=== PATIENT | male | born 1955 | race Caucasian/White ===

== ENCOUNTER 2017-04-10 22:16 | Observation (INO) | payer BC, OTHER ==
[~2017-04-10] VITALS: Ht 182.9 cm; Wt 89.3 kg
[2017-04-10] MEDS ORDERED: NITROGLYCERIN OINT 2% 1GM PACKET EXT ONE (23:00)
[2017-04-10] MEDS ORDERED: SODIUM CHLORIDE 0.9% 1000ML 1,000 ML IV ONE (23:00)
[2017-04-10 23:07] LABS: BASO % 0.3 %; BASO ABS # 0.02 K/uL (0-0.2); EOS % 1.9 %; EOS ABS # 0.14 K/uL (0-0.5); HEMATOCRIT 43.9 % (42-52); HEMOGLOBIN 15.7 g/dL (14.0-18.0); IG# 0.02 K/uL (0.00-0.02); LYMPH % 30.9 %; LYMPH ABS # 2.29 K/uL (1.2-3.4); MEAN CELL VOLUME 87.5 fL (80-100); MEAN CORPUSCULAR HEMOGLOBIN 31.3 pg (25-34); MEAN CORPUSCULAR HGB CONC 35.8 g/dl (32-36); MEAN PLATELET VOLUME 10.5 fL (7.4-10.4); MONO % 9.3 %; MONO ABS # 0.69 K/uL (0.11-0.59); NEUT % 57.3 %; NEUT ABS # 4.26 K/uL (1.4-6.5); PLATELET COUNT 218 K/uL (130-400); RED CELL DISTRIBUTION WIDTH CV 12.8 % (11.5-14.5); RED CELL DISTRIBUTION WIDTH SD 40.8 fL (36.4-46.3); WHITE BLOOD COUNT 7.42 K/uL (4.8-10.8)
[2017-04-10] MEDS ORDERED: LISI20TA3 PO (23:17)
[2017-04-10] MEDS ORDERED: BUPR-79 PO (23:17)
[2017-04-10] MEDS ORDERED: ROSU20TA PO (23:17)
[2017-04-10] MEDS ORDERED: ASPI81TA28 PO (23:17)
[2017-04-10 23:32] LABS: CALCIUM 8.8 mg/dl (8.5-10.1); POTASSIUM 3.9 mmol/L (3.5-5.1); TOTAL PROTEIN 7.6 gm/dl (6.4-8.2)
--- NOTE | 2017-04-11 01:37 | History and Physical ---
History & Physical Date & Time of Service: Apr 11, 2017 at 01:36 Chief Complaint: Chest Pain Primary Care Physician: Gertrudis Sahu History of Present Illness Source: patient 61 y/o M Hx HTN, HPL, anxiety. Pt was shoveling snow and developed central CP. Was slightly SOB, denies N/V, lightheadedness or diaphoresis. The pain persisted on arrival to the ER where he responded to NTG. Initial trop and EKG do not support acute ischemia. The pt has a strong family history of CAD. 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 Quit smoking 30 years ago Rarely drinks Smoking Status: Former Smoker Multi-Drug Resistant Organisms History of MDRO: No Allergies Coded Allergies: Penicillins (Verified Allergy, Unknown, unknown, 04/10/17) Home Medications Scheduled Aspirin (Aspirin Ec), 81 MG PO DAILY Bupropion (Wellbutrin Sr), 150 MG PO BID Lisinopril (Prinivil), 20 MG PO DAILY Rosuvastatin Calcium (Crestor), 20 MG PO DAILY Review of Systems Constitutional: No fever, No chills, No sweats Eyes: No worsening of vision ENT: No hearing loss, No unusual epistaxis, No nasal symptoms Respiratory: + shortness of breath, No cough, No sputum, No wheezing Cardiovascular: + chest pain, No orthopnea, No PND Abdomen: No pain, No nausea, No vomiting Musculoskeletal: No joint pain Genitourinary - Male: No hematuria, No dysuria Neurologic: No memory loss, No paralysis, No weakness Psychiatric: No depression symptoms Endocrine: No fatigue Hematologic / Lymphatic: No abnormal bleeding/bruising Integumentary: No rash Allergic / Immunologic: No environmental allergies Physical Exam Vital Signs Date Time Temp Pulse Resp B/P (MAP) Pulse Ox O2 Delivery O2 Flow Rate FiO2 04/10/17 23:46 58 16 129/75 97 04/10/17 23:30 117/72 04/10/17 23:16 60 14 120/72 98 04/10/17 23:13 60 18 124/73 97 Room Air 04/10/17 23:09 124/73 04/10/17 23:01 98 Room Air 04/10/17 22:46 60 19 97 04/10/17 22:31 56 04/10/17 22:25 97 Room Air 04/10/17 22:25 36.5 59 19 160/121 97 Room Air General Appearance: WD/WN, no apparent distress Head: normocephalic Eyes: normal inspection ENT: normal ENT inspection, pharynx normal Neck: supple, no JVD Respiratory/Chest: chest non-tender, lungs clear, normal breath sounds Cardiovascular: regular rate, rhythm, no edema, no gallop Abdomen/GI: normal bowel sounds, non tender, soft Back: normal inspection, no CVA tenderness Extremities/Musculoskelatal: normal inspection, no calf tenderness, normal capillary refill, no pedal edema, normal range of motion 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, no motor/sensory deficits, alert, oriented x 3 Skin: normal color Diagnostics Laboratory Results Results Past 24 Hours Test 04/10/17 21:18 04/10/17 22:20 04/10/17 22:33 04/11/17 00:11 Range/Units White Blood Count 7.42 4.8-10.8 K/uL Red Blood Count 5.02 4.7-6.1 M/uL Hemoglobin 15.7 14.0-18.0 g/dL Hematocrit 43.9 42-52 % Mean Corpuscular Volume 87.5 80-100 fL Mean Corpuscular Hemoglobin 31.3 25-34 pg Mean Corpuscular Hemoglobin Concent 35.8 32-36 g/dl Platelet Count 218 130-400 K/uL Mean Platelet Volume 10.5 7.4-10.4 fL Neutrophils (%) (Auto) 57.3 % Lymphocytes (%) (Auto) 30.9 % Monocytes (%) (Auto) 9.3 % Eosinophils (%) (Auto) 1.9 % Basophils (%) (Auto) 0.3 % Neutrophils # (Auto) 4.26 1.4-6.5 K/uL Lymphocytes # (Auto) 2.29 1.2-3.4 K/uL Monocytes # (Auto) 0.69 0.11-0.59 K/uL Eosinophils # (Auto) 0.14 0-0.5 K/uL Basophils # (Auto) 0.02 0-0.2 K/uL RDW Standard Deviation 40.8 36.4-46.3 fL RDW Coefficient of Variation 12.8 11.5-14.5 % Immature Granulocyte % (Auto) 0.3 % Immature Granulocyte # (Auto) 0.02 0.00-0.02 K/uL D-Dimer 310 0-500 ug/L FEU Sodium Level 139 136-145 mmol/L Potassium Level 3.9 3.5-5.1 mmol/L Chloride Level 106 98-107 mmol/L Carbon Dioxide Level 23 21-32 mmol/L Anion Gap 10.0 3-11 mmol/L Blood Urea Nitrogen 16 7-18 mg/dl Creatinine 1.00 0.60-1.40 mg/dl Est Creatinine Clear Calc Drug Dose 84.7 ml/min Estimated GFR () 95.1 Estimated GFR (Non- 82.0 BUN/Creatinine Ratio 15.9 10-20 Random Glucose 100 70-99 mg/dl Calcium Level 8.8 8.5-10.1 mg/dl Total Bilirubin 0.4 0.2-1 mg/dl Aspartate Amino Transf (AST/SGOT) 22 15-37 U/L Alanine Aminotransferase (ALT/SGPT) 47 12-78 U/L Alkaline Phosphatase 125 45-117 U/L Total Protein 7.6 6.4-8.2 gm/dl Albumin 4.0 3.4-5.0 gm/dl Globulin 3.6 2.5-4.0 gm/dl Albumin/Globulin Ratio 1.1 0.9-2 Lipase 194 73-393 U/L Thyroid Stimulating Hormone (TSH) 2.390 0.300-4.500 uIu/ml Chemistry Specimen Hemolysis Urine Color YELLOW Urine Appearance CLEAR CLEAR Urine pH 7.5 4.5-7.5 Urine Specific [place] 1.014 1.000-1.030 Urine Protein NEG NEG Urine Glucose (UA) NEG NEG Urine Ketones NEG NEG Urine Occult Blood NEG NEG Urine Nitrite NEG NEG Urine Bilirubin NEG NEG Urine Urobilinogen NEG NEG Urine Leukocyte Esterase NEG NEG Bedside Troponin I < 0.030 < 0.030 0-0.045 ng/ml EKG NSR, LVH Impression Assessment and Plan 61 y/o M Hx HTN, HPL, anxiety. Pt was shoveling snow and developed central CP. Was slightly SOB, denies N/V, lightheadedness or diaphoresis. The pain persisted on arrival to the ER where he responded to NTG. Initial trop and EKG do not support acute ischemia. The pt has a strong family history of CAD. 1) CP - pt is high risk and will be assigned to telemetry - will cont Statin, ASA and NTG PRN - he last had a stress test in his 50s and will likely benefit from an additional. His HR would not tolerate a B nora 2) HTN - cont Lisinopril 3) HPL - cont Crestor 4) Anxiety - cont Wellbutrin Full code - Lovenox prophylaxis Total time for this admit including review of labs, meds, imaging, records, EKG - discussion with pt and ER attending 30 min Level of Care Telemetry Resuscitation Status FULL RESUSCITATION VTE Prophylaxis VTE Risk Assessment Done? Y/N: Yes Risk Level: Low Given or contraindicated: Enoxaparin (Lovenox)SQ
[2017-04-11] MEDS ORDERED: MAGNESIUM HYDROXIDE SUSP 30 ML UDC PO PRN (01:45)
[2017-04-11] MEDS ORDERED: POLYETHYLENE (MIRALAX) 17 GM PACK PO PRN (01:45)
[2017-04-11] MEDS ORDERED: ONDANSETRON INJ 2 MG/ML 2 ML VIAL IV PRN (01:45)
[2017-04-11] MEDS ORDERED: ACETAMINOPHEN 325 MG TAB PO PRN (01:45)
[2017-04-11] MEDS ORDERED: NITROGLYCERIN 0.4 MG SL PER TAB CHARGE SL PRN (01:45)
[2017-04-11] MEDS ORDERED: ALUMINUM/MAGNESIUM/SIMETH (MAALOX MAX) 30 ML UDC PO PRN (01:45)
[2017-04-11] MEDS ORDERED: ZOLPIDEM TARTRATE 5 MG TAB PO PRN (01:45)
[2017-04-11] MEDS ORDERED: MoRPHine SULFATE 2 MG/ML CARP IV PRN (01:45)
[2017-04-11 01:58] VITALS: BP 138/82; PULSE 52; TEMP 36.4; O2SAT 97; Ht 182.9 cm; Wt 89.3 kg
[2017-04-11 04:00] VITALS: BP 121/57; PULSE 54; TEMP 36.6; O2SAT 97
[2017-04-11] MEDS ORDERED: IV FLUIDS COMPLETED PRN (06:15)
--- NOTE | 2017-04-11 06:22 | EMERGENCY ROOM VISIT NOTE ---
History First contact with patient: 22:28 Chief Complaint: CHEST PAIN Stated Complaint: CHEST PAIN Nursing Triage Summary: Retrosternal CP now relieved. History of Present Illness The patient is a 61 year old male who presents to the Emergency Room with complaints of left-sided chest pain symptoms that began about 1-2 hours ago. The patient states that he was showing snow tonight, and shortly thereafter began with some symptoms. He is concerned about his symptoms as he has a very strong family history of cardiac disease. He states that his father and his brothers all had their first heart attacks in their low 50s. He admits that he is the eldest in the family without having an event at the age of 61. The patient does not have fever or chills. No recent illness. He reports a personal history of dyslipidemia and hypertension. He rates his current discomfort a 5/10. Review of Systems More than 10 systems were reviewed and otherwise negative with the exception of history of present illness. Past Medical/Surgical History Medical Problems: (1) Chest pain Family History Significant family history of coronary artery disease Social History Smoking Status: Former Smoker Housing Status: lives with family Current/Historical Medications Scheduled Aspirin (Aspirin Ec), 81 MG PO DAILY Bupropion (Wellbutrin Sr), 150 MG PO BID Lisinopril (Prinivil), 20 MG PO DAILY Rosuvastatin Calcium (Crestor), 20 MG PO DAILY Physical Exam Vital Signs Date Time Temp Pulse Resp B/P (MAP) Pulse Ox O2 Delivery O2 Flow Rate FiO2 04/11/17 01:30 57 19 125/77 98 04/11/17 01:15 143/80 04/11/17 01:01 115/65 04/11/17 01:00 59 17 97 04/11/17 00:45 112/72 04/11/17 00:30 59 16 106/72 94 04/11/17 00:15 120/70 04/11/17 00:00 60 21 117/71 95 04/10/17 23:46 58 16 129/75 97 04/10/17 23:30 117/72 04/10/17 23:16 60 14 120/72 98 04/10/17 23:13 60 18 124/73 97 Room Air 04/10/17 23:09 124/73 04/10/17 23:01 98 Room Air 04/10/17 22:46 60 19 97 04/10/17 22:31 56 04/10/17 22:25 97 Room Air 04/10/17 22:25 36.5 59 19 160/121 97 Room Air Physical Exam VITALS: Vitals are noted on the nurse's note and reviewed by myself. Vital signs stable. GENERAL: Well-developed, well-nourished, white male, who is in no acute distress and resting comfortably. Patient is cooperative with the examination. NECK: Supple without nuchal rigidity. No lymphadenopathy. No thyromegaly. Cervical spine is nontender. HEART: Regular rate and rhythm without murmurs gallops or rubs. LUNGS: Clear to auscultation bilaterally without wheezes, rales or rhonchi. No retractions or accessory muscle use. ABDOMEN: Positive normal bowel sounds x 4. Soft, nontender, without masses or organomegaly. No guarding or rebound tenderness. MUSCULOSKELETAL: No muscle atrophy, erythema, or edema noted. Full range of motion without joint tenderness in all extremities. Medical Decision & Procedures Laboratory Results 04/10/17 21:18 Red Blood Count 5.02, Mean Corpuscular Volume 87.5, Mean Corpuscular Hemoglobin 31.3, Mean Corpuscular Hemoglobin Concent 35.8, Mean Platelet Volume 10.5, Neutrophils (%) (Auto) 57.3, Lymphocytes (%) (Auto) 30.9, Monocytes (%) (Auto) 9.3, Eosinophils (%) (Auto) 1.9, Basophils (%) (Auto) 0.3, Neutrophils # (Auto) 4.26, Lymphocytes # (Auto) 2.29, Monocytes # (Auto) 0.69, Eosinophils # (Auto) 0.14, Basophils # (Auto) 0.02 04/10/17 21:18 Test 04/10/17 21:18 04/10/17 22:20 04/11/17 00:11 White Blood Count 7.42 K/uL (4.8-10.8) Red Blood Count 5.02 M/uL (4.7-6.1) Hemoglobin 15.7 g/dL (14.0-18.0) Hematocrit 43.9 % (42-52) Mean Corpuscular Volume 87.5 fL (80-100) Mean Corpuscular Hemoglobin 31.3 pg (25-34) Mean Corpuscular Hemoglobin Concent 35.8 g/dl (32-36) Platelet Count 218 K/uL (130-400) Mean Platelet Volume 10.5 fL (7.4-10.4) Neutrophils (%) (Auto) 57.3 % Lymphocytes (%) (Auto) 30.9 % Monocytes (%) (Auto) 9.3 % Eosinophils (%) (Auto) 1.9 % Basophils (%) (Auto) 0.3 % Neutrophils # (Auto) 4.26 K/uL (1.4-6.5) Lymphocytes # (Auto) 2.29 K/uL (1.2-3.4) Monocytes # (Auto) 0.69 K/uL (0.11-0.59) Eosinophils # (Auto) 0.14 K/uL (0-0.5) Basophils # (Auto) 0.02 K/uL (0-0.2) RDW Standard Deviation 40.8 fL (36.4-46.3) RDW Coefficient of Variation 12.8 % (11.5-14.5) Immature Granulocyte % (Auto) 0.3 % Immature Granulocyte # (Auto) 0.02 K/uL (0.00-0.02) D-Dimer 310 ug/L FEU (0-500) Anion Gap 10.0 mmol/L (3-11) Est Creatinine Clear Calc Drug Dose 84.7 ml/min Estimated GFR () 95.1 Estimated GFR (Non- 82.0 BUN/Creatinine Ratio 15.9 (10-20) Calcium Level 8.8 mg/dl (8.5-10.1) Total Bilirubin 0.4 mg/dl (0.2-1) Aspartate Amino Transf (AST/SGOT) 22 U/L (15-37) Alanine Aminotransferase (ALT/SGPT) 47 U/L (12-78) Alkaline Phosphatase 125 U/L (45-117) Total Protein 7.6 gm/dl (6.4-8.2) Albumin 4.0 gm/dl (3.4-5.0) Globulin 3.6 gm/dl (2.5-4.0) Albumin/Globulin Ratio 1.1 (0.9-2) Lipase 194 U/L (73-393) Thyroid Stimulating Hormone (TSH) 2.390 uIu/ml (0.300-4.500) Chemistry Specimen Hemolysis Urine Color YELLOW Urine Appearance CLEAR (CLEAR) Urine pH 7.5 (4.5-7.5) Urine Specific [place] 1.014 (1.000-1.030) Urine Protein NEG (NEG) Urine Glucose (UA) NEG (NEG) Urine Ketones NEG (NEG) Urine Occult Blood NEG (NEG) Urine Nitrite NEG (NEG) Urine Bilirubin NEG (NEG) Urine Urobilinogen NEG (NEG) Urine Leukocyte Esterase NEG (NEG) Bedside Troponin I < 0.030 ng/ml (0-0.045) Medications Administered Medications (Trade) Dose Ordered Sig/Amanda Route Start Time Stop Time Status Last Admin Dose Admin Sodium Chloride 1,000 ml @ 999 mls/hr Q1H1M ONCE IV 04/10/17 23:00 04/11/17 00:00 DC 04/10/17 23:00 999 MLS/HR Nitroglycerin (Nitroglycerin 2% Oint) 1 inch NOW ONCE EXT 04/10/17 23:00 04/10/17 23:02 DC 04/10/17 23:00 1 [facility] ED Course Physical exam and history were performed. Nursing notes, EMR, and Medication List were personally reviewed. Patient appears to have left sided chest pain that began shortly after shoveling snow. The patient does not appear toxic on examination. He does have a very strong family history of cardiac disease. IV access was established and labs were obtained. The patient was hydrated with normal saline. He was given aspirin and nitro paste here in the department. EKG was performed and was normal sinus rhythm per my interpretation without ST elevation. The patient was placed on the bread wrapper. The patient's blood work is as above was reviewed. He does not have a significant elevated white blood cell count, gross anemia, bandemia, or significant electrolyte imbalance. Troponin and d-dimer were both negative. The patient remained in normal sinus rhythm on bread wrapper. The patient did have significant improvement of his discomfort with aspirin and nitroglycerin paste. I discussed the case with my attending physician, and also with the on-call hospitalist. The patient symptoms may represent unstable angina, and he will likely need further evaluation. Please see the hospitalist dictation for further patient course, plan, and disposition. The chart was completed utilizing [employer] Voice Recognition Software. Grammatical errors, random word insertions, pronoun errors, and incomplete sentences are an occasional consequence of this system due to software limitations, ambient noise, and hardware issues. Any formal questions or concerns about the content, text, or information contained within the body of this dictation should be directly addressed to the provider for clarification. . Medical Decision Differential diagnosis includes, but is not limited to: Myocardial infarction, dysrhythmia, pericarditis, pneumothorax, aortic aneurysm/dissection, DVT/PE, anxiety, GERD, PUD, electrolyte imbalance, thyroid disorder, pneumonia, bronchitis, pancreatitis, and others Impression Primary Impression: Chest pain Departure Information Dispostion Still a Patient Condition FAIR Referrals Gertrudis Sahu.N.P. (PCP) Forms Call Back Authorization, HOME CARE DOCUMENTATION FORM, IMPORTANT VISIT INFORMATION Patient Instructions [facility]
--- NOTE | 2017-04-11 06:30 | DIAGNOSTIC IMAGING REPORT ---
CHEST 2 VIEWS ROUTINE CLINICAL HISTORY: Atypical chest pain COMPARISON STUDY: No previous studies for comparison. FINDINGS: The cardiac and mediastinal contours are normal. There is no evidence of focal pulmonary consolidation. There is no evidence of failure. No pleural effusions are visualized.[ IMPRESSION: No active disease in the chest. Electronically signed by: Jon Craft M.D. 04/11/2017 6:29 AM Dictated Date/Time: 04/11/2017 6:28 AM
[2017-04-11 08:09] VITALS: BP 118/73; PULSE 56; TEMP 36.6; O2SAT 98
[2017-04-11] MEDS ORDERED: ASPIRIN 81 MG ECTAB PO SCH (09:00)
[2017-04-11] MEDS ORDERED: BuPROPion SR 150 MG TABCR PO SCH (09:00)
[2017-04-11] MEDS ORDERED: LISINOPRIL 20 MG TAB PO SCH (09:00)
[2017-04-11] MEDS ORDERED: ROSUVASTATIN CALCIUM 20 MG TAB PO SCH (09:00)
[2017-04-11] MEDS ORDERED: ENOXAPARIN 40 MG/0.4 ML SYR SC SCH (09:00)
[2017-04-11 12:13] VITALS: BP 128/76; PULSE 72; TEMP 36.4; O2SAT 97
--- NOTE | 2017-04-11 14:26 | EXERCISE STRESS ECHO ---
*NOTICE TO RECEIVING [employer]Y This information is strictly Confidential and protected under [place] law. [place] law prohibits you from making any further disclosure of this information unless further disclosure is expressly permitted by the written consent of the person to whom it pertains or is authorized by law. A general authorization for the release of medical or other information is not sufficient for this purpose. Hospital accepts no responsibility if the information is made available to any other person, INCLUDING THE PATIENT. Interpretation Summary * Name: NAHEED OATES Study Date: 04/11/2017 10:27 AM BP: 125/64 mmHg * Patient Location: .MSICU\S\E110\S\1 HR: 52 * : 1955 (M/d/yyyy) Gender: Male Height: 72 in * Age: 61 yrs Ethnicity: CA Weight: 196 lb * Ordering Physician: Renetta Calix * Referring Physician: Self, Referred * Performed By: Liv Torres RCS * * Reason For Study: CHEST PAIN * BSA: 2.1 m2 * -- Conclusions -- * There is mild asymmetric left ventricular hypertrophy. * Left ventricular systolic function is normal. * Grade I diastolic dysfunction, (abnormal relaxation pattern). * There is mild mitral regurgitation. * Right ventricular systolic pressure is normal. * Diagnostic exercise echocardiogram without evidence of inducible ischemia Procedure Details * ECHOEX, CPT #[id number] * ECHO COLOR FLOW, CPT #[id number] * ECHO DOPPLER, CPT #[id number] Left Ventricular Findings with Stress * Diagnostic exercise echocardiogram without evidence of inducible ischemia Left Ventricle * The left ventricle is normal in size. * There is mild asymmetric left ventricular hypertrophy. * Left ventricular systolic function is normal. * Ejection Fraction = 55-60%. * Grade I diastolic dysfunction, (abnormal relaxation pattern). * The left ventricular wall motion is normal at rest. Right Ventricle * The right ventricle is normal in size and function. Atria * The left atrial size is normal. * Right atrial size is normal. Mitral Valve * The mitral valve is grossly normal. * There is mild mitral regurgitation. Tricuspid Valve * The tricuspid valve is not well visualized, but is grossly normal. * There is trace tricuspid regurgitation. * Right ventricular systolic pressure is normal. Aortic Valve * The aortic valve is normal in structure and function. * The aortic valve is trileaflet. * There is no significant aortic regurgitation. Great Vessels * The aortic root is normal size. Pericardium * There is no pericardial effusion. Stress Parameters * Normal baseline electrocardiogram. * Stress ECG: No ST changes. No arrhythmias. * The stress portion of this study was personally supervised by the undersigned interpreting physician. * Rest heart rate was '52' BPM. * Rest blood pressure was '125/64' * Maximum heart rate achieved was 141 bpm. * Maximum heart rate was 87 % of maximum age-predicted heart rate. * Maximum blood pressure was '155/60' * Total exercise time was '08:05' * Maximum exercise MET level achieved was '10.10' METS * Maximum treadmill speed was '3.40' miles per hour. * Maximum treadmill elevation was '14.00'% grade. Left Ventricular Findings with Stress * Baseline EKG was normal There were no significant ST or T-wave changes with exercise or recovery Baseline echocardiogram demonstrated normal LV function with normal wall motion There was normal augmentation of all rodriguez without development of wall motion abnormalities at peak exertion There was normal heart rate and blood pressure response to exercise No symptoms reported during the test Howell treadmill score: 8 (low risk) MMode 2D Measurements and Calculations IVSd 1.4 cm IVSs 1.6 cm LVIDd 4.4 cm LVIDs 3.3 cm LVPWd 1.0 cm LVPWs 1.5 cm IVS/LVPW 1.3 FS 26.0 % EDV(Teich) 88.4 ml ESV(Teich) 43.0 ml EF(Teich) 51.3 % EDV(cubed) 86.0 ml ESV(cubed) 34.8 ml EF(cubed) 59.5 % % IVS thick 17.5 % % LVPW thick 49.8 % LV mass(C)d 193.8 grams LV mass(C)dI 91.8 grams/m\S\2 LV mass(C)s 193.2 grams LV mass(C)sI 91.5 grams/m\S\2 SV(Teich) 45.3 ml SI(Teich) 21.5 ml/m\S\2 SV(cubed) 51.2 ml SI(cubed) 24.2 ml/m\S\2 Ao root diam 2.9 cm Ao root area 6.5 cm\S\2 LA dimension 3.4 cm LA/Ao 1.2 LVOT diam 2.0 cm LVOT area 3.1 cm\S\2 Doppler Measurements and Calculations MV E max harjit 67.9 cm/sec MV A max harjit 67.9 cm/sec MV E/A 1.0 MV P1/2t max harjit 78.5 cm/sec MV P1/2t 85.0 msec MVA(P1/2t) 2.6 cm\S\2 MV dec slope 270.5 cm/sec\S\2 MV dec time 0.25 sec Ao V2 max 120.2 cm/sec Ao max PG 5.8 mmHg Ao max PG (full) -0.10 mmHg DIAMANTE(V,A) 3.2 cm\S\2 DIAMANTE(V,D) 3.2 cm\S\2 LV V1 max PG 5.9 mmHg LV V1 max 121.3 cm/sec MR max harjit 533.1 cm/sec MR max PG 113.7 mmHg PA V2 max 112.2 cm/sec PA max PG 5.0 mmHg PI max harjit 125.1 cm/sec PI max PG 6.3 mmHg PI dec slope 82.5 cm/sec\S\2 PI P1/2t 444.0 msec TR max harjit 231.8 cm/sec
[2017-04-11 15:17] VITALS: BP 128/76; PULSE 72; TEMP 36.4; O2SAT 97
--- NOTE | 2017-04-11 15:25 | Discharge Instructions ---
Discharge Instructions Date of Service Apr 11, 2017. Admission Reason for Admission: Chest Pain Discharge Discharge Diagnosis / Problem: Chest pain Discharge Goals Goal(s): Diagnostic testing Activity Recommendations Activity Limitations: resume your previous activity . Instructions / Follow-Up Instructions / Follow-Up Please follow up with your primary care provider in about a week. Current Hospital Diet Patient's current hospital diet: AHA Diet (Heart Healthy) Discharge Diet Recommended Diet: AHA Diet (Heart Healthy) Procedures Procedures Performed: Stress echocardiogram chest x ray Pending Studies Studies pending at discharge: no Medical Emergencies . Who to Call and When: Medical Emergencies: If at any time you feel your situation is an emergency, please call 911 immediately. . Non-Emergent Contact Non-Emergency issues call your: Primary Care Provider Call Non-Emergent contact if: you have any medication questions . . "Provider Documentation" section prepared by Renetta Calix. . VTE Core Measure Inpt VTE Proph given/why not?: Enoxaparin (Lovenox)SQ
--- NOTE | 2017-04-11 15:25 | Discharge Summary ---
Discharge Summary Date of Service Apr 11, 2017. Discharge Summary Admission Date: Apr 11, 2017 at 01:36 Discharge Date: Apr 11, 2017 Discharge Disposition: Home Principal Diagnosis: Chest pain Procedures: Interpretation Summary * Name: NAHEED OATES Study Date: 04/11/2017 10:27 AM BP: 125/64 mmHg * Patient Location: [facility] [place]\S\E110\S\1 HR: 52 * : 1955 (M/d/yyyy) Gender: Male Height: 72 in * Age: 61 yrs Ethnicity: [place] Weight: 196 lb * Ordering Physician: Renetta Calix * Referring Physician: Self, Referred * Performed By: Liv Torres RCS * * Reason For Study: CHEST PAIN * BSA: 2.1 m2 * -- Conclusions -- * There is mild asymmetric left ventricular hypertrophy. * Left ventricular systolic function is normal. * Grade I diastolic dysfunction, (abnormal relaxation pattern). * There is mild mitral regurgitation. * Right ventricular systolic pressure is normal. * Diagnostic exercise echocardiogram without evidence of inducible ischemia Procedure Details * ECHOEX, CPT #[id number] * ECHO COLOR FLOW, CPT #[id number] * ECHO DOPPLER, CPT #[id number] Left Ventricular Findings with Stress * Diagnostic exercise echocardiogram without evidence of inducible ischemia Left Ventricle * The left ventricle is normal in size. * There is mild asymmetric left ventricular hypertrophy. * Left ventricular systolic function is normal. * Ejection Fraction = 55-60%. * Grade I diastolic dysfunction, (abnormal relaxation pattern). * The left ventricular wall motion is normal at rest. Right Ventricle * The right ventricle is normal in size and function. Atria * The left atrial size is normal. * Right atrial size is normal. Mitral Valve * The mitral valve is grossly normal. * There is mild mitral regurgitation. Tricuspid Valve * The tricuspid valve is not well visualized, but is grossly normal. * There is trace tricuspid regurgitation. * Right ventricular systolic pressure is normal. Aortic Valve * The aortic valve is normal in structure and function. * The aortic valve is trileaflet. * There is no significant aortic regurgitation. Great Vessels * The aortic root is normal size. Pericardium * There is no pericardial effusion. Stress Parameters * Normal baseline electrocardiogram. * Stress ECG: No ST changes. No arrhythmias. * The stress portion of this study was personally supervised by the undersigned interpreting physician. * Rest heart rate was '52' BPM. * Rest blood pressure was '125/64' * Maximum heart rate achieved was 141 bpm. * Maximum heart rate was 87 % of maximum age-predicted heart rate. * Maximum blood pressure was '155/60' * Total exercise time was '08:05' * Maximum exercise MET level achieved was '10.10' METS * Maximum treadmill speed was '3.40' miles per hour. * Maximum treadmill elevation was '14.00'% grade. Left Ventricular Findings with Stress * Baseline EKG was normal There were no significant ST or T-wave changes with exercise or recovery Baseline echocardiogram demonstrated normal LV function with normal wall motion There was normal augmentation of all rodriguez without development of wall motion abnormalities at peak exertion There was normal heart rate and blood pressure response to exercise No symptoms reported during the test Howell treadmill score: 8 (low risk) Medication Reconciliation Continued Medications: Aspirin (Aspirin Ec) 81 Mg Tab 81 MG PO DAILY Bupropion (Wellbutrin Sr) 150 Mg Ertab 150 MG PO BID, TAB Lisinopril (Prinivil) 20 Mg Tab 20 MG PO DAILY, TAB Rosuvastatin Calcium (Crestor) 20 Mg Tab 20 MG PO DAILY, TAB Discharge Exam ROS Constitutional: no chills, aches, sweats or fever Respiratory: no sob,cough, sputum, or wheezing Cardiac: no chest pain, palpitations, edema, orthopnea or lightheadedness GI: no abdominal pain, nausea, vomiting, diarrhea or constipation : no dysuria or hesitancy Extremities: no joint pain or weakness Skin: no rash All other systems reviewed and negative PE General: no distress Eyes: normal inspection, PERLL Respiratory: chest non tender, clear to auscultation, normal breath sounds, no respiratory distress, no accessory muscle use Cardiac: regular rate and rhythm, no rub or gallop, no murmur, no edema, no jvd GI/: active bowel sounds, no abd pain or tenderness, soft, non distended Extremities: normal range of motion, normal strength, non tender Neuro/Psych: alert and oriented x 3, normal mood and affect Skin: normal color, dry Hospital Course Mr. Oates is a 61 y/o M Hx HTN, HPL, anxiety. Pt was shoveling snow earlier in the day [employer] and then later while watching tv developed chest pain that was central and briefly radiated to his jaw. He was slightly SOB, denied N/V, lightheadedness or diaphoresis. The pain persisted on arrival to the ER where he responded to NTG. He has had two other episodes like this one, both at rest, one awakening him from sleep. He has had no further symptoms since arrival to ED. CP - pt is high risk due to strong family history - monitored on tele - no events - cont Statin, ASA - did not require any NTG PRN - he last had a stress test at age 52 - stress echo performed today did not show any inducible ischemia or WMA HTN - cont Lisinopril HPL - cont Crestor Anxiety - cont Wellbutrin Total Time Spent: Greater than 30 minutes This includes examination of the patient, discharge planning, medication reconciliation, and communication with other providers. Discharge Instructions Please refer to the electronic Patient Visit Report (Discharge Instructions) for additional information. Follow-Up fu with pcp in about a week Additional Copies To Gertrudis Sahu
== END 2017-04-11 17:30 | disposition home or self-care (01) ==
LOC: EDBD 22:16 → C.EDC 22:17 → C.MSICU 04-11 01:36
PROVIDERS: ADMIT Internal Medicine; ATTEND Hospitalist
DX: R07.9 Chest pain, unspecified (principal); F41.9 Anxiety disorder, unspecified; Z79.82 Long term (current) use of aspirin; Z79.899 Other long term (current) drug therapy; Z87.891 Personal history of nicotine dependence; Z88.0 Allergy status to penicillin; Z82.49 Family history of ischemic heart disease and other diseases of the circulatory system